=== PATIENT | male | born 1975 | race Caucasian/White ===

== ENCOUNTER 2017-04-24 16:00 | Emergency (ER) | END 2017-04-24 17:40 | disposition left against medical advice (07) | DX: I20.0 Unstable angina (principal); I50.21 Acute systolic (congestive) heart failure; I10 Essential (primary) hypertension; E11.9 Type 2 diabetes mellitus without complications; F17.210 Nicotine dependence, cigarettes, uncomplicated; E66.9 Obesity, unspecified; Z79.4 Long term (current) use of insulin; Z79.84 Long term (current) use of oral hypoglycemic drugs; Z68.37 Body mass index [BMI] 37.0-37.9, adult; Z95.1 Presence of aortocoronary bypass graft; Z95.0 Presence of cardiac pacemaker | CPT/HCPCS: 36415; 71010; 80053; 81001; 82962; 83690; 83880; 84484; 85025; 85610; 93005; 96372; 96374; J1815; J1940; Z7502; Z7610 ==

== ENCOUNTER 2017-09-10 13:11 | Emergency (ER) | END 2017-09-11 07:10 | disposition left against medical advice (07) ==

== ENCOUNTER 2018-08-14 00:02 | Emergency (ER) | END 2018-08-14 02:08 | disposition home or self-care (01) ==